=== PATIENT | male | born 1950 | race Caucasian/White ===

== ENCOUNTER 2024-05-17 13:49 | Emergency (ER) | payer MEDICARE ==
[~2024-05-17] VITALS: Ht 180.3 cm; Wt 90.7 kg
[2024-05-17] MEDS ORDERED: AMOXICILLIN & POT CLAVULANATE 875 MG/TAB PO ONE (16:00)
[2024-05-17 16:03] VITALS: BP 150/89
[2024-05-17] MEDS ORDERED: MEDDOSEPAK PO (16:04)
[2024-05-17] MEDS ORDERED: AMOX/K CLAV875 M1 PO (16:04)
[2024-05-17] MEDS ORDERED: CETIRIZINE10 MG PO (16:04)
== END 2024-05-17 16:12 | disposition home or self-care (01) ==
LOC: ED 13:49
DX: J32.9 Chronic sinusitis, unspecified (principal); Z95.5 Presence of coronary angioplasty implant and graft; Z20.822 Contact with and (suspected) exposure to COVID-19
CPT/HCPCS: J1100